=== PATIENT | male | born 1945 | race Caucasian/White ===

== ENCOUNTER 2016-09-14 09:12 | Emergency (ER) | payer MEDICARE, OTHER ==
[2016-09-14 09:45] LABS: BASO % 1.5 % (0.2-1.2); EOS % 1.5 % (0.8-7.0); GRAN # 0.2 10_X3_uL (1.8-5.4); GRAN % 27.3 % (34.0-67.9); HEMATOCRIT 36.6 % (40-51); HEMOGLOBIN 11.9 g/dL (13.7-17.5); LYMPH # 0.3 10_X3_uL (1.3-3.6); LYMPH % 40.9 % (21.8-53.1); MEAN CORPUSCULAR HEMOGLOBIN 28.5 pg (27.0-33.0); MEAN CORPUSCULAR HGB CONC 32.5 g/dL (32.0-36.0); MEAN CORPUSCULAR VOLUME 87.8 fL (79-92); MEAN PLATELET VOLUME 10.6 fl (7.5-11.5); MONO # 0.2 10_X3_uL (0.3-0.8); MONO % 28.8 % (5.3-12.2); PLATELET COUNT 85 x10_3/uL (163-337); RED BLOOD COUNT 4.17 x10_6/uL (4.6-6.1); RED CELL DISTRIBUTION WIDTH 15.2 % (11.6-14.4)
[2016-09-14 09:47] LABS: WHITE BLOOD COUNT < 0.9 x10_3/uL (4.2-9.1)
[2016-09-14 09:50] LABS: ALBUMIN 3.2 gm/dL (3.4-5.0); ALKALINE PHOSPHATASE 122 U/L (50-136); ALT/SGPT 21 U/L (7.53-40.17); AST/SGOT 15 U/L (6.66-35.34); BILIRUBIN,TOTAL 0.85 mg/dL (0.0-1.0); BLOOD UREA NITROGEN 22 mg/dL (7-18); CALCIUM 8.3 mg/dL (8.7-10.7); CARBON DIOXIDE 24 mmol/L (21-32); CREATININE 1.2 mg/dL (0.6-1.3); GLUCOSE,RANDOM 145 mg/dL (70-99); POTASSIUM 4.4 mmol/L (3.5-5.1); SODIUM 135 mmol/L (136-145)
[2016-09-14 09:56] LABS: ARTERIAL BLD GAS O2 SATURATION 99.4 % (94-98); ARTERIAL BLOOD GAS HCO3 22.9 mmol/L (22-26); ARTERIAL BLOOD GAS PCO2 47.7 mmHg (35-48)
[2016-09-14 11:42] LABS: ARTERIAL BLD GAS O2 SATURATION 93.2 % (94-98); ARTERIAL BLOOD GAS HCO3 24.5 mmol/L (22-26); ARTERIAL BLOOD GAS PCO2 47.4 mmHg (35-48); ARTERIAL BLOOD GAS pH 7.33 (7.35-7.45)
== END 2016-09-14 14:15 | disposition short-term general hospital (02) ==
LOC: ER 09:12
PROVIDERS: General Practice
DX: J18.9 Pneumonia, unspecified organism (principal); J90 Pleural effusion, not elsewhere classified; I11.0 Hypertensive heart disease with heart failure; I50.9 Heart failure, unspecified; I48.92 Unspecified atrial flutter; I48.91 Unspecified atrial fibrillation; I49.3 Ventricular premature depolarization; K76.9 Liver disease, unspecified; M89.9 Disorder of bone, unspecified; E27.8 Other specified disorders of adrenal gland; D69.6 Thrombocytopenia, unspecified; D72.819 Decreased white blood cell count, unspecified; I25.10 Atherosclerotic heart disease of native coronary artery without angina pectoris; Z95.1 Presence of aortocoronary bypass graft; Z95.5 Presence of coronary angioplasty implant and graft; Z85.118 Personal history of other malignant neoplasm of bronchus and lung; Z79.891 Long term (current) use of opiate analgesic; Z79.899 Other long term (current) drug therapy
CPT/HCPCS: 36415; 36600; 71010; 71260; 80053; 82550; 82553; 82803; 83605; 83880; 85025; 85379; 87040; 87400; 93005; 96365; 96367; 96375; 99070; 99285; 99285-25; J3370; J7040; J7050; Q9967

== ENCOUNTER 2016-10-12 09:05 | Emergency (ER) | payer OTHER, MEDICARE ==
[2016-10-12 10:05] LABS: CALCIUM 8.8 mg/dL (8.7-10.7); CREATININE 1.4 mg/dL (0.6-1.3); POTASSIUM 4.6 mmol/L (3.5-5.1)
== END 2016-10-12 11:20 | disposition short-term general hospital (02) ==
LOC: ER 09:05
PROVIDERS: General Practice
DX: M79.622 Pain in left upper arm (principal); N18.9 Chronic kidney disease, unspecified; I25.10 Atherosclerotic heart disease of native coronary artery without angina pectoris; Z95.5 Presence of coronary angioplasty implant and graft; Z95.1 Presence of aortocoronary bypass graft; Z85.118 Personal history of other malignant neoplasm of bronchus and lung; Z88.0 Allergy status to penicillin; Z79.02 Long term (current) use of antithrombotics/antiplatelets; Z79.899 Other long term (current) drug therapy; Z79.891 Long term (current) use of opiate analgesic
CPT/HCPCS: 36415; 80048; 85379; 96372; 99283; 99283-25